=== PATIENT | female | born 2000 | race Caucasian/White ===

== ENCOUNTER 2021-10-08 10:32 | Emergency (ER) | payer SELFPAY ==
[2021-10-08 10:46] VITALS: BP 122/68; PULSE 118; RESP 16; TEMP 36.9; O2SAT 98; BMI 33.1
--- NOTE | 2021-10-08 11:12 | ED_ITS ---
HPI - General Adult General: Chief complaint: Nausea/Vomiting/Diarrhea Stated complaint: N/V Time Seen by Provider: 10/08/21 10:37 History of Present Illness: Patient is a 21-year-old female comes to the ED with nausea and vomiting. Symptoms started approximately 4 days ago and got wo rse in the last 24 hours. Back on September 15 patient had a positive home test and then a couple days later started to have heavy bleeding and Her bleeding resolved in about a week. Since her heavy bleeding has resolved she has had negative test. Approximately 4 days ago she started developing this acute nausea and vomiting. She also endorses having white and green vaginal discharge that has a foul odor to it. Reports abdominal pain that she rates a 1 out of 10 that she describes as sharp and located around periumbilical region. She drinks some water earlier this morning and was unable to keep it down. Endorses diarrhea. Denies any fever, chills, dysuria or hematuria. Uses vape tobacco products, but denies any marijuana use. Patient is from [place] and heading home currently after visiting some family in [place]. Associated symptoms: Reports nausea and vomiting; Deny chest pain, dyspnea, headache(s), rash or palpitations Review of Systems Const: Denies: fever(s), chills or fatigue Eyes: Denies: change in vision or eye discomfort ENMT: Denies: throat pain, odynophagia, nasal discharge or nasal congestion Card: Denies: chest pain, palpitations, edema, swelling of feet/ankles, dyspnea on exertion or orthopnea Resp: Denies: dyspnea, productive cough or non-productive cough GI: Reports: abdominal pain, nausea, vomiting and diarrhea; Denies: constipation or hematochezia : Reports: vaginal discharge (White/greenish malodorous discharge); Denies: flank pain, dysuria or hematuria Musc: Denies: neck pain, back pain or extremity swelling Skin/Breast: Denies: rash or new lesions Neuro: Denies: headache(s), numbness in extremities or weakness in extremities PFSH ED PFSH: Medical History No pertinent family history Surgical History No pertinent past surgical history Physical Exam Const: COMMON NORMALS: no acute distress, patient oriented x3, healthy appearing and alert GENERAL APPEARANCE: cooperative and comfortable HENMT: COMMON NORMALS: normocephalic HEAD & SCALP: normocephalic MOUTH: Normal oral and palatal mucosa present THROAT: posterior oropharynx normal and uvula midline Eye: COMMON NORMALS: Equal, round and reactive pupils present and conjunctivae normal GENERAL EYE: appearance normal, both eyes and all related structures CONJUNCTIVA: Yes conjunctivae normal PUPIL: Yes Equal, round and reactive pupils present Neck/C-Spine: COMMON NORMALS: supple GENERAL: Yes normal visual inspection Resp: COMMON NORMALS: normal respiratory effort, No retractions, No use of accessory muscles and clear to auscultation bilaterally AUSCULTATION: clear to auscultation bilaterally Cardio: COMMON NORMALS: regular rate, regular rhythm, S1 normal heart sound present, S2 normal heart sound present, No gallops present (Cardio), No clicks present (Cardio), No murmurs present (Cardio) and Peripheral pulses 2+ through out RATE: regular rate RHYTHM: regular rhythm HEART SOUNDS: S1 normal heart sound present and S2 normal heart sound present PERIPHERAL PULSES: Peripheral pulses 2+ throughout GI: COMMON NORMALS: Normal to inspection, nondistended, normoactive bowel sounds present, Soft to palpation, non-tender and no masses PALPATION: Yes Soft to palpation : COMMON NORMALS: Yes no CVA tenderness BLADDER/KIDNEY EXAM: Yes no CVA tenderness Back/Pelvis: COMMON NORMALS: no CVA tenderness Extremity: COMMON NORMALS: normal to inspection and no pedal edema Neuro: COMMON NORMALS: patient oriented x3 and moves all extremities SENSORIUM/ORIENTATION: Yes alert Skin: GENERAL SKIN EXAM: dry skin Course Reevaluation(s): Reevaluation #1: Patient's nausea and vomiting has improved greatly after given IV fluids and Reglan. She has not had any episodes of emesis here in the ED. She has been able to keep down p.o. fluids as well. Time: 14:05 Vital Signs: Vital signs: Vital Signs Temperature 98.4 F 10/08/21 10:46 Pulse Rate 107 H 10/08/21 15:01 Respiratory Rate 14 10/08/21 15:01 Blood Pressure 132/57 10/08/21 15:01 Pulse Oximetry 97 10/08/21 15:01 [facility] - General Adult Medical Decision Making Patient is a 21-year-old female comes to the ED with nausea vomiting and some mild periumbilical abdominal pain. Patient also had some vaginal discharge that was greenish in color. Vitals stable patient is afebrile. Exam is benign. White blood cell count 20 rest of CBC and CMP were unremarkable. hCG negative. UA unremarkable. Wet prep test showed bacterial vaginosis. CT abdomen pelvis showed no acute findings. Patient was given IV fluids and Reglan and her nausea improved greatly. She had no episodes of vomiting while here in the ED she was able to keep p.o. fluids down. Patient was stable for discharge home. She was given a dose of Flagyl here in the ED and sent home with a prescription for Flagyl and Reglan. She was told to follow-up with her PCP in [place] as soon as she gets home for reevaluation. Return to ED precautions given. Patient understood and agree with plan. Lab Data I reviewed the patient's lab results. : 10/08/21 11:29 10/08/21 11:29 Radiology Impressions Abdomen/Pelvis CT 10/08/21 11:57 IMPRESSION: 1. Normal appendix. 2. Bilateral mildly enlarged ovaries with follicles. No solid mass or large cyst. 3. No GI tract obstruction. 4. No free fluid or free air. Laboratory Results WBC 20.1 10^3/uL (4.0-10.0) H 10/08/21 11:29 RBC 5.61 10^6/uL (4.1-5.3) H 10/08/21 11:29 Hgb 15.9 g/dL (11.5-15.3) H 10/08/21 11:29 Hct 47.7 % (37.0-47.0) H 10/08/21 11:29 MCV 85.0 fl (81-99) 10/08/21 11:29 MCH 28.3 pg (28.0-34.0) 10/08/21 11:29 MCHC 33.3 g/dL (30.0-36.0) 10/08/21 11:29 RDW 14.2 % (12.1-15.1) 10/08/21 11:29 Plt Count 339 10^3/cmm (130-400) 10/08/21 11:29 MPV 8.9 fL (7.4-10.4) 10/08/21 11: Neut % (Auto) 88.5 % 10/08/21 11: Lymph % (Auto) 5.2 % 10/08/21 11: [place] % (Auto) 4.9 % 10/08/21 11: Eos % (Auto) 0.7 % 10/08/21 11:29 Baso % (Auto) 0.3 % 10/08/21 11: Neut # (Auto) 17.78 10^3/uL (1.8-7.7) H 10/08/21 11: Lymph # (Auto) 1.0 10^3/uL (0.8-4.8) 10/08/21 11: [place] # (Auto) 1.0 10^3/uL (0.2-0.9) H 10/08/21 11: Eos # (Auto) 0.2 10^3/uL (0.0-0.8) 10/08/21 11: Baso # (Auto) 0.1 10^3/uL (0.0-0.1) 10/08/21 11: Nucleated RBC % (auto) 0 % 10/08/21 11: Nucleated RBCs # 0.0 /100WBC 10/08/21 11:29 Sodium 135 mmol/L (136-145) L 10/08/21 11:29 Potassium 4.3 mmol/L (3.5-5.1) 10/08/21 11: Chloride 102 mmol/L (98-107) 10/08/21 11: Carbon Dioxide 22 mmol/L (22-29) 10/08/21 11:29 Anion Gap 15.3 (5-19) 10/08/21 11:29 BUN 19 mg/dL (6-20) 10/08/21 11:29 Creatinine 0.5 mg/dL (0.5-0.9) 10/08/21 11:29 GFR Calculation 154.3 mL/min (90-130) H 10/08/21 11:29 Glucose 97 mg/dL (65-115) 10/08/21 11:29 Calculated Osmolality 282 mOsm/kg (285-295) L 10/08/21 11:29 Calcium 9.4 mg/dL (8.5-10.5) 10/08/21 11:29 Total Bilirubin 0.4 mg/dL (0.15-1.2) 10/08/21 11:29 AST 14 U/L (0-32) 10/08/21 11:29 ALT 18 U/L (0-33) 10/08/21 11:29 Alkaline Phosphatase 61 IU/L (35-105) 10/08/21 11:29 Total Protein 7.9 g/dL (6.6-8.7) 10/08/21 11:29 Albumin 4.6 g/dL (3.5-5.2) 10/08/21 11:29 Globulin 3.3 g/dL (1.3-4.6) 10/08/21 11: Lipase 39 U/L (13-60) 10/08/21 11:29 HCG, Qual Negative (Negative) 10/08/21 11:29 Urine Color Yellow (Yellow) 10/08/21 11:25 Urine Appearance Clear (CLEAR) 10/08/21 11:25 Urine pH 5 (5-7) 10/08/21 11:25 Ur Specific [place] 1.025 (1.005-1.030) 10/08/21 11:25 Urine Protein Neg (Negative) 10/08/21 11:25 Urine Glucose (UA) Norm (Normal) 10/08/21 11:25 Urine Ketones Negative (Negative) 10/08/21 11:25 Urine Blood Neg (Negative) 10/08/21 11:25 Urine Nitrate Negative (Negative) 10/08/21 11:25 Urine Bilirubin Neg (Negative) 10/08/21 11:25 Urine Urobilinogen Neg mg/dL (Negative) 10/08/21 11:25 Ur Leukocyte Esterase Trace (Negative) H 10/08/21 11:25 Urine RBC 0-4 /hpf (0-2) H 10/08/21 11:25 Urine WBC 5-10 /hpf (0-5) H 10/08/21 11:25 Ur Squamous Epith Cells 25-40 /hpf (0-5) H 10/08/21 11:25 Amorphous Sediment Not Reportable 10/08/21 11:25 Urine Bacteria 1+ /hpf (NONE) H 10/08/21 11:25 Discharge Plan Discharge Patient Disposition: Home Clinical Impression: Bacterial vaginosis Condition: Stable Prescriptions: New metronidazole 500 mg tablet 500 mg PO Q8H 7 Days Qty: 21 0RF Reglan 10 mg tablet 10 mg PO Q6H PRN (Reason: nausea and vomiting) Qty: 20 0RF Discharge Orders: Discharge ED (Routine); Ordered 10/08/21 Ordered By: Rony Sandhu Discharge Diet: Advance as tolerated and Clear Liquid Discharge Activity: Increase activity as tolerated Patient Instructions: Bacterial Vaginosis (ED) Activity Restrictions/Additional Instructions: Follow-up with medical provider as directed in 5-7 days for reevaluation.Take medications as prescribed. Return to the ER or your medical provider if condition worsens. Please read and understand discharge instructions. Thank you for choosing [facility] for your healthcare needs today. Please realize this is an emergency room and that we are providing you with a medical screening exam and this may not be complete and all inclusive of all the testing and or work up that you may need to determine your ailment or severity of your illness. It is very important that you follow up as instructed or that you return to the Emergency Department should you have concerns or if your condition changes or worsens in any way. 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
[2021-10-08 11:36] LABS: Basophils # 0.1 10^3/uL (0.0-0.1); Basophils % 0.3 %; Eosinophils # 0.2 10^3/uL (0.0-0.8); Eosinophils % 0.7 %; Hematocrit 47.7 % (37.0-47.0); Hemoglobin 15.9 g/dL (11.5-15.3); Lymphocytes % 5.2 %; Mean Corpuscular HGB Conc 33.3 g/dL (30.0-36.0); Mean Corpuscular Hemoglobin 28.3 pg (28.0-34.0); Mean Platelet Volume 8.9 fL (7.4-10.4); Monocytes % 4.9 %; Neutrophils # 17.78 10^3/uL (1.8-7.7); Neutrophils % 88.5 %; Nucleated Red Blood Cells % 0 %; Platelet Count 339 10^3/cmm (130-400); Red Blood Count 5.61 10^6/uL (4.1-5.3); Red Cell Distribution Width 14.2 % (12.1-15.1); White Blood Count 20.1 10^3/uL (4.0-10.0)
[2021-10-08] MEDS: sodium chloride 0.9% 1,000 ML 999 ML IV (11:37)
[2021-10-08] MEDS: metoclopramide 5 mg/mL SDV 2 mL 10 MG IVP (11:38)
[2021-10-08 11:50] LABS: HCG, Serum Qual Negative (Negative)
[2021-10-08 11:56] LABS: Alanine Aminotransferase 18 U/L (0-33); Albumin Level 4.6 g/dL (3.5-5.2); Alkaline Phosphatase 61 IU/L (35-105); Anion Gap 15.3 (5-19); Aspartate Amino Transferase 14 U/L (0-32); Blood Urea Nitrogen 19 mg/dL (6-20); Calcium 9.4 mg/dL (8.5-10.5); Carbon Dioxide 22 mmol/L (22-29); Chloride 102 mmol/L (98-107); Globulin 3.3 g/dL (1.3-4.6); Glomerular Filtration Rate 154.3 mL/min (90-130); Glucose 97 mg/dL (65-115); Lipase 39 U/L (13-60); Osmolality Calculated 282 mOsm/kg (285-295); Potassium 4.3 mmol/L (3.5-5.1); Sodium 135 mmol/L (136-145); Total Bilirubin 0.4 mg/dL (0.15-1.2); Total Protein 7.9 g/dL (6.6-8.7)
--- NOTE | 2021-10-08 11:57 | CT_ITS ---
WS: [id number] CT ABDOMEN AND PELVIS WITH CONTRAST HISTORY: abdominal pain-periumbilical, n/v TECHNIQUE: Imaging performed of the abdomen and pelvis with IV contrast. Single phase imaging of the abdomen. Coronal and sagittal reformats are submitted. All CT scans at [facility] use at [address] one of these dose optimization techniques: automated exposure control; mA and/or kV adjustment per patient size (includes targeted exams where dose is matched to clinical indication); or iterative re construction. IV CONTRAST: Omnipaque 300; 95 mL IV. Oral contrast: No DLP: 1874.77 mGy.cm COMPARISON: None available. Lower thorax: Lung bases are clear. Heart is normal size. Small hiatal hernia. Liver/biliary system: Normal size with no intrahepatic dilatation. Gallbladder: Normal. No gallstones or wall thickening. No pericholecystic fluid. Pancreas: Normal size pancreas and pancreatic duct. No adjacent inflammation. Spleen: Normal size spleen. No mass or infarct. Adrenal glands: Normal. Right kidney: Subcentimeter cortical hypodensities are too small to characterize. No solid mass or ob struction. Left kidney: Normal. Aorta: Normal. Lymphadenopathy: None. Free fluid: None. GI tract: The appendix is normal. Mild fecal retention throughout the colon. No obstructive pattern. Nondistended stomach. Some increased fluid within the RIGHT colon. Abdominal wall: Unremarkable abdominal wall. No hernia. Pelvis: Well-distended urinary bladder. Uterus is midline. Both ovaries are identified and mildly pro minent. Multiple follicles in the RIGHT ovary. The RIGHT ovary measures 4.7 x 4.4 cm. The LEFT ovary contains a dominant follicle measuring 2.3 x 1.8 cm. There is also peripheral enhancement and crenula catia cyst in the LEFT ovary with a maximum diameter of 1.5 cm. No appreciable free fluid in the cul-de -sac. Bones: Unremarkable. CT/CT abdomen pelvis w con* [id number] IMPRESSION: 1. Normal appendix. 2. Bilateral mildly enlarged ovaries with follicles. No solid mass or large cy st. 3. No GI tract obstruction. 4. No free fluid or free air.
[2021-10-08 12:07] LABS: Add Urine Microscopic? YES; Bilirubin Urine Neg (Negative); Blood Urine Neg (Negative); Glucose Urine UA Norm (Normal); Ketones Urine Negative (Negative); Leukocyte Esterase Urine Trace (Negative); Protein Urine Neg (Negative); RBC Urine 0-4 /hpf (0-2); Specific Gravity, Urine 1.025 (1.005-1.030); Urine Appearance Clear (CLEAR); Urine Color Yellow (Yellow); Urobilinogen Urine Neg (Negative); pH Urine 5 (5-7)
[2021-10-08 12:08] LABS: Add Urine Culture? No; Bacteria Urine 1+ /hpf; Squamous Epithelial Cell Urine 25-40 /hpf (0-5)
[2021-10-08 12:09] LABS: Nitrate Urine Negative (Negative)
[2021-10-08] MEDS: iohexol 300 mg/mL 100 mL Btl IV (13:20)
[2021-10-08] MEDS: metroNIDAZOLE 500 MG Tablet PO (14:42)
[2021-10-08 14:46] VITALS: BP 132/57; PULSE 107; RESP 14; O2SAT 97
[2021-10-08 15:01] VITALS: BP 132/57; PULSE 107; RESP 14; O2SAT 97
== END 2021-10-08 14:59 | disposition home or self-care (01) ==
PROVIDERS: Emergency Provider Physician Assistant
DX: N76.0 Acute vaginitis (principal)
CPT/HCPCS: 74177; 80053; 81001; 83690; 84703; 85025; 87210; 96361; 96374; 99284; J2765; J7030; Q9967